=== PATIENT | female | born 1950 | race Caucasian/White ===

== ENCOUNTER 2025-01-07 10:06 | Day surgery (SDC) | payer MEDICARE ==
[~2025-01-07] VITALS: Ht 149.9 cm; Wt 61.7 kg
[~2025-01-07 10:06] MED LIST: HYDR-3713 PO; LEVO50TA5 PO; OMEP-173 PO; VITA100093 PO; ZOLO100T PO
[2025-01-07] MEDS ORDERED: LR 1,000 ML IV SCH (10:55)
[2025-01-07] MEDS: ceFAZolin SOD 2 GM IV ONCE IV ONE (12:45)
[2025-01-07] MEDS: LIDOCAINE 1% SDV 30 ML VIAL As Ordered ONE (12:52)
[2025-01-07] MEDS ORDERED: ACETAMINOPHEN 1000MG/100ML IV BAG As Ordered ONE (13:27)
[2025-01-07] MEDS ORDERED: LIDOCAINE 2% 100 MG/5 ML SDV (FOR ANES.) As Ordered ONE (13:27)
[2025-01-07] MEDS ORDERED: KETOROLAC 30 MG/ML 1 ML VIAL As Ordered ONE (13:30)
[2025-01-07 14:10] VITALS: BP 139/63; TEMP 97; O2SAT 98
== END 2025-01-07 14:19 | disposition home or self-care (01) ==
LOC: M SDC 10:06
PROVIDERS: ATTEND Podiatrist Foot & Ankle Surgery
DX: M21.611 Bunion of right foot (principal); M20.11 Hallux valgus (acquired), right foot; E03.9 Hypothyroidism, unspecified; K21.9 Gastro-esophageal reflux disease without esophagitis; F41.9 Anxiety disorder, unspecified; F10.90 Alcohol use, unspecified, uncomplicated; Z79.899 Other long term (current) drug therapy
CPT/HCPCS: 28296; C1713; J0131; J0665; J0690; J1885; J3010